=== PATIENT | female | born 1960 | race Caucasian/White ===

== ENCOUNTER → 2016-12-05 | Outpatient (CLI) | payer BC ==
[~2016-12-05] MED LIST: ADDE30CA PO; CELE20TA OR; EVIS1TAB PO; GABA300C3 PO; IBUP600T OR; LISI20TA PO; MELOPOW; SKEL800T5; TRAM50TA2 OR
[2016-12-05 16:04] LABS: BLOOD UREA NITROGEN 9 MG/DL (7-18); CARBON DIOXIDE LEVEL 31 MEQ/L (21-32); CREATININE FOR GFR 0.55 MG/DL (0.55-1.02); GLOMERULAR FILTRATION RATE > 60.0 (>51); GLUCOSE, FASTING 92 MG/DL (70-105)
[2016-12-05 16:05] LABS: ANION GAP 9 MEQ/L (8-16); CALCIUM LEVEL 9.6 MG/DL (8.5-10.1); CHLORIDE LEVEL 95 MEQ/L (98-107); POTASSIUM SERUM 3.5 MEQ/L (3.5-5.1); SODIUM LEVEL 135 MEQ/L (136-145)
--- NOTE | 2016-12-06 16:55 | ECGEPIP ---
Stationary ECG Study [facility] Test Date: 2016-12-05 Pat Name: DRISS ROMAN Department: Room: - Gender: F Terminal Operations Supervisor: ALICE : 1960 Requested By: aMtt Rocha Order Number: [id number] Reading MD: Ming Boogie Measurements Intervals Otis Rate: 73 P: 35 MA: 152 QRS: 56 QRSD: 98 T: 42 QT: 409 QTc: 452 Interpretive Statements SINUS RHYTHM MINIMAL VOLTAGE CRITERIA FOR LVH, CONSIDER NORMAL VARIANT No significant change compared with 08/24/2011. Electronically Signed On 12-06-2016 16:54:54 EDT by Ming Boogie
== END ==
LOC: M LAB 14:37
PROVIDERS: ATTEND Anesthesiology
DX: I10 Essential (primary) hypertension (principal)

== ENCOUNTER 2016-12-06 10:55 | Day surgery (SDC) | payer BC ==
[~2016-12-06] VITALS: Ht 157.5 cm; Wt 56.7 kg
[~2016-12-06 10:55] MED LIST changes: +BACITRACIN PWD 50,000 UNITS VIAL As Ordered ONE; +BUPIVACAINE/EPIN 0.25% 30 ML VIAL As Ordered ONE; +GABA-282 PO; -GABA300C3 PO; +THROMBIN SOLN 20,000 UNITS KIT As Ordered ONE
[2016-12-06] MEDS ORDERED: LR 1,000 ML IV SCH ×3 (11:15→17:30)
[2016-12-06] MEDS ORDERED: PERCOCET 5MG/325MG TAB PO ONE (11:15)
[2016-12-06] MEDS ORDERED: ceFAZolin SOD 1 GM in D5W MINI-BAG PLUS 50 ML IV ONE (11:15)
[2016-12-06] MEDS ORDERED: GABAPENTIN 300 MG CAP PO ONE (11:15)
[2016-12-06] MEDS ORDERED: MIDAZOLAM INJ 2 MG/2 ML VIAL (J2250) As Ordered ONE (12:24)
[2016-12-06] MEDS ORDERED: fentaNYL 100 MCG/2 ML INJECTION (J3010) As Ordered ONE (12:25)
[2016-12-06] MEDS ORDERED: PROPOFOL 200 MG/20 ML VIAL As Ordered ONE (12:26)
[2016-12-06] MEDS ORDERED: LIDOCAINE 2% INJ 100 MG/5 ML SDV (FOR ANES.) As Ordered ONE (12:26)
[2016-12-06] MEDS ORDERED: ROCURONIUM BROMIDE 50 MG/5 ML VIAL As Ordered ONE (12:28)
[2016-12-06] MEDS ORDERED: fentaNYL 250 MCG/5 ML INJECTION (J3010) As Ordered ONE (12:50)
[2016-12-06] MEDS ORDERED: METOCLOPRAMIDE INJ 10MG/2ML VIAL (J2765) As Ordered ONE (13:29)
[2016-12-06] MEDS ORDERED: dexameTHASONE 4 MG/ML 1ML VIAL (J1100) As Ordered ONE (13:32)
[2016-12-06] MEDS ORDERED: ePHEDrine SULFATE 25 MG/5 ML(5MG/ML) SYRINGE As Ordered ONE (13:48)
--- NOTE | 2016-12-06 14:24 | REP ---
Lumbar spine intraoperative cross-table lateral view: The tip of a metallic probe is seen posterior to the L4-L5 disc space. Signed by Vipul Mendez MD 12/06/2016 02:16 P
[2016-12-06] MEDS ORDERED: HYDROmorphone HCL 2 MG/ML 1ML VIAL (J1170) As Ordered ONE (14:58)
[2016-12-06] MEDS ORDERED: ONDANSETRON 4MG/2ML VIAL (J2405) As Ordered ONE (15:02)
[2016-12-06] MEDS ORDERED: GLYCOPYRROLATE INJ 0.2 MG/ML 2 ML VIAL As Ordered ONE (15:03)
[2016-12-06] MEDS ORDERED: NEOSTIGMINE 1MG/ML 5 ML SYRINGE (J2710) As Ordered ONE (15:04)
[2016-12-06] MEDS ORDERED: CelecoXIB (CeleBREX) 100 MG CAP PO SCH (15:25)
--- NOTE | 2016-12-06 16:12 | RO ---
DATE OF PROCEDURE: 12/06/2016 PREPROCEDURE DIAGNOSIS: Disc extrusion L5-S1 left producing left lower extremity radiculopathy. POSTPROCEDURE DIAGNOSIS: Disc extrusion L5-S1 left producing left lower extremity radiculopathy. PROCEDURE PERFORMED: Left L5-S1 laminotomy with microdiscectomy for decompression of the traversing nerve root and neural foramina. INTRAOPERATIVE FINDINGS: Includes relatively large disc extrusion L5-S1 with some inferior migration, elevating especially the S1 nerve root traversing. SURGEON: Rafa Aguilar MD BRAZER REPAIR AND SALVAGE: Hernandez Steiner PA-C ANESTHESIA: General. ESTIMATED BLOOD LOSS: Less than 40 mL. REPLACED: Crystalloid. COMPLICATIONS: None. INDICATIONS: Left lower extremity radiculopathy producing significant discomfort over a number of weeks. The patient feels that she has intractable pain and has elected for operative intervention. Consent reviewed in detail with the patient including cindy discussion of the procedure proposed, the pathology involved, alternatives including doing nothing, epidural injections of therapy and risks including not limited to pain, failure, infection, bleeding, blood loss, incomplete relief of symptoms, need for additional surgery and other issues. The patient agrees to proceed with surgery. DESCRIPTION OF PROCEDURE: Identified in the holding area, site, side verified and brought to the operating room. General endotracheal anesthesia was administered. She was positioned for exposure on the Dominic frame. I assisted in positioning. Axillary rolls were utilized. The knees were slightly flexed. The Dominic was slightly elevated. Next, once I and the web knitter were comfortable with the patient's positioning she was then sterilely prepped and draped in the usual fashion for exposure of the lumbar spine. The iliac crest landmarks were palpated, marked and I palpated the L5 spinous process. A 2 cm incision was made over the L5-S1 interspace. Dissection continued through subcuticular tissues to the posterior lumbar fascia. Posterior lumbar fascia was reflected off of the spinous process of L5 and dissection continued along the L5 lamina to the superior aspect of the L5 lamina at the inferior aspect of the 4-5 lamina into the superior aspect of the top of the sacrum. A bur was utilized to create a divot in the posterior lamina of L4 and a cross-table lateral was taken verifying the L4-5 level. The dissection continued at the L5 lamina exposing the top of the S1 lamina and the L5-S1 interspace. Next, because the patient's incision was relatively small, we utilized a 35 mm cervical shadow line retractor. At this stage, the operating microscope was sterilely draped and brought in. Mr. Steiner looked through the oculars on the right, I through the oculars on the left. High-speed bur was utilized to implement the laminotomy extending superiorly to the bare area of L5 and inferiorly to the bare area of S1. Mr. Steiner assisted with suction as well as retraction. Next, I elevated the ligamentum flavum with #4-0 Viviane curettes and removed using pituitaries as well as #2 Kerrison. Next, subarticular space was decompressed as well. Next, I identified the S1 traversing nerve root which appeared to be injected with significant small epidurals around it. This was swept medially over the extruded disc, which was appreciated to be inferiorly migrated. Next, the posterior longitudinal ligament as well as the annulus were opened. I removed the extruded portion using Vee pituitaries as well as the Salcedo-Stephen which was utilized to palpate and push the disc material through the rent in the posterior longitudinal ligament. I also explored the L5-S1 space. There is now free friable material there. We explored medially using the Salcedo-Stephen blunt end, pressing some additional disc material from underneath the posterior longitudinal ligament and I explored the neural foramina at L5-S1 on the left side with the Salcedo-Stephen and pushed additional extruded material medially and removed it through the rent in the posterior in the posterior longitudinal ligament. Next bipolar cautery was utilized for hemostasis as well as thrombin Gelfoam. All thrombin Gelfoam was removed and this marked the conclusion of the case. I did utilize some bone wax as well. Next, once irrigation was accomplished and I had anesthesia with Valsalva I did not appreciate any active bleeding or cerebrospinal fluid (CSF) leak. Next, all thrombin Gelfoam was removed. The wound was at the conclusion irrigated with concentrated bacitracin. Mr. Steiner and I closed the wound with interrupted #0 Vicryl stitch and subcuticular Vicryl utilized on dermis followed by Monocryl, Steri-Strips, sterile dressing. The patient was moved to the hospital bed, extubated, moved to the recovery room in good condition. For further details please refer to the medical record.
[2016-12-06] MEDS ORDERED: MORPHINE 2 MG/ML 1ML SYRINGE IV PRN ×2 (16:15→17:30)
[2016-12-06] MEDS: PERCOCET 5MG/325MG TAB PO PRN ×3 (16:15→20:42)
[2016-12-06] MEDS ORDERED: ONDANSETRON 4MG/2ML VIAL (J2405) IV PRN ×2 (16:15→17:30)
[2016-12-06] MEDS ORDERED: fentaNYL 100 MCG/2 ML INJECTION (J3010) IV PRN ×2 (16:15→17:30)
[2016-12-06] MEDS: D5W/LR 1,000 ML IV SCH (16:30)
[2016-12-06] MEDS ORDERED: TEMAZEPAM 15 MG CAP PO PRN (16:30)
[2016-12-06] MEDS ORDERED: PERCOCET 5MG/325MG TAB PO PRN ×2 (16:30→17:30)
[2016-12-06 17:00] VITALS: BP 116/64
[2016-12-06 17:30] VITALS: BP 120/69
[2016-12-06 18:30] VITALS: BP 115/59
[2016-12-06 19:30] VITALS: BP 126/65
[2016-12-06 20:30] VITALS: BP 121/67
[2016-12-06] MEDS: ceFAZolin SOD 1 GM in D5W MINI-BAG PLUS 50 ML IV SCH (20:41)
[2016-12-06] MEDS: ASCORBIC ACID 500 MG TAB PO SCH (20:41)
[2016-12-06] MEDS: GABAPENTIN 300 MG CAP PO SCH (20:41)
[2016-12-06 21:30] VITALS: BP 102/58
[2016-12-06] MEDS: HYDROmorphone HCL 1 MG/ML SYRINGE (J1170) IV PRN (22:49)
[2016-12-07] MEDS: D5W/LR 1,000 ML IV SCH (01:30)
[2016-12-07 02:00] VITALS: BP 101/51
[2016-12-07] MEDS: ceFAZolin SOD 1 GM in D5W MINI-BAG PLUS 50 ML IV SCH (02:59)
[2016-12-07] MEDS: PERCOCET 5MG/325MG TAB PO PRN (03:00)
[2016-12-07 06:00] VITALS: BP 140/85
[2016-12-07] MEDS: HYDROmorphone HCL 1 MG/ML SYRINGE (J1170) IV PRN (06:13)
[2016-12-07] MEDS: ASCORBIC ACID 500 MG TAB PO SCH (09:43)
[2016-12-07] MEDS: GABAPENTIN 300 MG CAP PO SCH (09:43)
== END 2016-12-07 11:25 | disposition home or self-care (01) ==
LOC: M SDC 10:55 → M MS5PR 17:00 → M SDC 12-07 11:25
PROVIDERS: ATTEND Orthopaedic Surgery
DX: M51.17 Intervertebral disc disorders with radiculopathy, lumbosacral region (principal); G57.92 Unspecified mononeuropathy of left lower limb; I10 Essential (primary) hypertension; Z85.3 Personal history of malignant neoplasm of breast; Z92.3 Personal history of irradiation; Z79.899 Other long term (current) drug therapy
CPT/HCPCS: 36415; 63030; 72100; 86850; 86900; 86901; 88304; 96365; 96366; 96375; 96376; J0690; J1100; J1170; J2250; J2405; J2710; J2765; J3010

== ENCOUNTER 2016-12-18 14:36 | Emergency (ER) | payer BC ==
[~2016-12-18] VITALS: Ht 157.5 cm; Wt 56.7 kg
[~2016-12-18 14:36] MED LIST changes: -BACITRACIN PWD 50,000 UNITS VIAL As Ordered ONE; -BUPIVACAINE/EPIN 0.25% 30 ML VIAL As Ordered ONE; -THROMBIN SOLN 20,000 UNITS KIT As Ordered ONE
[2016-12-18 14:37] VITALS: BP 115/85
[2016-12-18] MEDS ORDERED: CHLO25TA PO (14:52)
[2016-12-18] MEDS ORDERED: LIDOCAINE 1% MDV 20ML VIAL IM ONE (15:15)
[2016-12-18] MEDS ORDERED: AUGM875T27 PO (15:35)
[2016-12-18] MEDS ORDERED: ADACEL/BOOSTRIX VACCINE (DIPHTH/PERTUSS/ACELL/TETANUS)0.5ML SYR (90715) IM ONE (15:45)
[2016-12-18] MEDS ORDERED: AUGMENTIN 875 MG TAB PO ONE (15:45)
== END 2016-12-18 15:59 | disposition home or self-care (01) ==
LOC: M ED 15:57
DX: S61.218A Laceration without foreign body of other finger without damage to nail, initial encounter (principal); W26.9XXA Contact with unspecified sharp object(s), initial encounter; Y92.019 Unspecified place in single-family (private) house as the place of occurrence of the external cause; Y93.89 Activity, other specified; Y99.8 Other external cause status

== ENCOUNTER → 2017-02-20 | Outpatient (REF) | payer BC ==
[~2017-02-20] MED LIST changes: +AUGM875T27 PO; +CHLO25TA PO
[2017-02-20 12:15] LABS: MEAN CORPUSCULAR HGB CONC 33.8 g/dl (32.0-36.5); MEAN CORPUSCULAR VOLUME 94.8 fl (80.0-96.0); RED CELL DISTRIBUTION WIDTH 12.3 % (11.5-14.5); WHITE BLOOD COUNT 4.9 K/mm3 (4.0-10.0)
[2017-02-20 13:09] LABS: ALBUMIN 4.7 GM/DL (3.2-5.2); ALBUMIN/GLOBULIN RATIO 1.52 (1.00-1.93); ALKALINE PHOSPHATASE 52 U/L (45-117); ALT/SGPT 34 U/L (12-78); ANION GAP 7 MEQ/L (8-16); AST/SGOT 25 U/L (15-37); BILIRUBIN,TOTAL 0.6 MG/DL (0.2-1.0); BLOOD UREA NITROGEN 11 MG/DL (7-18); CALCIUM LEVEL 9.9 MG/DL (8.5-10.1); CARBON DIOXIDE LEVEL 30 MEQ/L (21-32); CHLORIDE LEVEL 102 MEQ/L (98-107); CREATININE FOR GFR 0.56 MG/DL (0.55-1.02); GLOMERULAR FILTRATION RATE > 60.0 (>51); GLUCOSE, FASTING 100 MG/DL (70-105); MAGNESIUM LEVEL 2.1 MG/DL (1.8-2.4); POTASSIUM SERUM 4.2 MEQ/L (3.5-5.1); SODIUM LEVEL 139 MEQ/L (136-145); TOTAL PROTEIN 7.8 GM/DL (6.4-8.2)
== END ==
LOC: M SFHCPLAZ 10:17
PROVIDERS: ATTEND Internal Medicine
DX: I10 Essential (primary) hypertension (principal); E78.00 Pure hypercholesterolemia, unspecified; Z85.3 Personal history of malignant neoplasm of breast

== ENCOUNTER 2018-12-20 08:06 | Day surgery (SDC) | payer BC ==
[~2018-12-20] VITALS: Ht 157.5 cm; Wt 54.4 kg
[~2018-12-20 08:06] MED LIST changes: -ADDE30CA PO; +ADDE30CA3 PO; -AUGM875T27 PO; +AUGM875T28 PO; +CITA20TA6 PO; -GABA-282 PO; +GABA-843 PO; +IBUP-1022 PO
[2018-12-20] MEDS ORDERED: NS 1,000 ML IV ONE (08:30)
[2018-12-20] MEDS ORDERED: PROPOFOL 200 MG/20 ML VIAL As Ordered ONE (09:06)
--- NOTE | 2018-12-20 09:19 | ROOR ---
Patient Name: Holly John Procedure Date: 12/20/2018 9:00 AM Date of : 1960 Age: 58 Room: [facility] Gender: Female Note Status: Finalized Procedure: Colonoscopy Indications: Surveillance: Personal history of adenomatous polyps on last colonoscopy 3 years ago Providers: Ming WILLIS MD Referring MD: Eduardo Ramos MD Requesting Provider: Medicines: Monitored Anesthesia Care Complications: No immediate complications. Procedure: Pre-Anesthesia Assessment: - The heart rate, respiratory rate, oxygen saturations, blood pressure, adequacy of pulmonary ventilation, and response to care were monitored throughout the procedure. The Colonoscope was introduced through the anus and advanced to the terminal ileum, with identification of the appendiceal orifice and IC valve. The colonoscopy was performed without difficulty. The patient tolerated the procedure well. The quality of the bowel preparation was good. Findings: The perianal and digital rectal examinations were normal. Mild sigmoid diverticulosis and small internal hemorrhoids. The entire examined colon appeared normal on direct and retroflexion views. Impression: - Mild sigmoid diverticulosis and small internal hemorrhoids. - The entire colon is otherwise normal on direct and retroflexion views. - No specimens collected. Recommendation: - Repeat colonoscopy in 5 years for surveillance based on personal history of previous adenomatous polyps. Ming Willis MD Ming WILLIS MD 12/20/2018 9:19:05 AM Electronically signed by Ming WILLIS MD Number of Addenda: 0 Note Initiated On: 12/20/2018 9:00 AM Estimated Blood Loss: Estimated blood loss: none.
[2018-12-20 09:20] VITALS: BP 145/96
== END 2018-12-20 10:20 | disposition home or self-care (01) ==
LOC: M OPP 08:06
PROVIDERS: ATTEND Internal Medicine Gastroenterology
DX: K57.30 Diverticulosis of large intestine without perforation or abscess without bleeding (principal); K64.8 Other hemorrhoids; Z86.010 Personal history of colon polyps

== ENCOUNTER → 2019-11-15 | Outpatient (CLI) | payer BC ==
[~2019-11-15] MED LIST changes: -LISI20TA PO; +LISI20TA19 PO
--- NOTE | 2019-11-15 11:28 | REP ---
CT chest without contrast: Low-dose screening exam. History: Nicotine dependence. No comparison chest CT study. CT findings: Digital preliminary grain trader radiograph is unremarkable. There is no significant pulmonary nodular or other opacity either lung. This study is otherwise unremarkable. Impression: Lung RADS category 1 findings. Repeat screening study recommended in 1 year. Electronically Signed by Feliciano Wolfe MD 11/15/2019 03:50 P
== END ==
LOC: M RAD 09:23
PROVIDERS: ATTEND Internal Medicine
DX: Z87.891 Personal history of nicotine dependence (principal)

== ENCOUNTER → 2019-11-21 | Outpatient (REF) | payer BC ==
[~2019-11-21] MED LIST changes: +ALEV220T22 PO; +CHAN1PAK13 PO; +CLONI1TA PO; +NASA1SPR
[2019-11-21 12:25] LABS: BLOOD UREA NITROGEN 15 MG/DL (7-18); CALCIUM LEVEL 10.2 MG/DL (8.5-10.1); CARBON DIOXIDE LEVEL 33 MEQ/L (21-32); CHLORIDE LEVEL 93 MEQ/L (98-107); CREATININE FOR GFR 0.72 MG/DL (0.55-1.30); GLOMERULAR FILTRATION RATE > 60.0 (>51); GLUCOSE, FASTING 90 MG/DL (70-100); POTASSIUM SERUM 3.6 MEQ/L (3.5-5.1); SODIUM LEVEL 133 MEQ/L (136-145)
== END ==
LOC: M LABDRAW1 09:53
PROVIDERS: ATTEND Orthopaedic Surgery
DX: Z79.899 Other long term (current) drug therapy (principal)

== ENCOUNTER → 2019-11-25 | Outpatient (REF) | payer BC ==
[2019-11-25 13:50] LABS: HEMATOCRIT 42.6 % (36.0-47.0); HEMOGLOBIN 14.4 g/dl (12.0-15.5); MEAN CORPUSCULAR HEMOGLOBIN 31.3 pg (27.0-33.0); MEAN CORPUSCULAR HGB CONC 33.8 g/dl (32.0-36.5); MEAN CORPUSCULAR VOLUME 92.6 fl (80.0-96.0); PLATELET COUNT, AUTOMATED 278 10^3/uL (150-450); WHITE BLOOD COUNT 5.4 10^3/uL (4.0-10.0)
[2019-11-25 14:04] LABS: ALBUMIN 4.5 GM/DL (3.2-5.2); ALT/SGPT 27 U/L (12-78); BILIRUBIN,TOTAL 0.3 MG/DL (0.2-1.0); BLOOD UREA NITROGEN 13 MG/DL (7-18); CALCIUM LEVEL 9.8 MG/DL (8.5-10.1); CARBON DIOXIDE LEVEL 33 MEQ/L (21-32); CHLORIDE LEVEL 97 MEQ/L (98-107); CHOLESTEROL LEVEL 261 MG/DL (<200); CHOLESTEROL RISK RATIO 2.932 (<5); CREATININE FOR GFR 0.58 MG/DL (0.55-1.30); GLOMERULAR FILTRATION RATE > 60.0 (>51); GLUCOSE, FASTING 111 MG/DL (70-100); HDL CHOLESTEROL 89 MG/DL (>40); LDL CHOLESTEROL 152 MG/DL (<100); NON-HDL-C 172 MG/DL; POTASSIUM SERUM 3.9 MEQ/L (3.5-5.1); SODIUM LEVEL 136 MEQ/L (136-145); TOTAL PROTEIN 7.9 GM/DL (6.4-8.2); TRIGLYCERIDES LEVEL 102 MG/DL (<150)
== END ==
LOC: M SFHCPLAZ 11:36
PROVIDERS: ATTEND Internal Medicine
DX: I10 Essential (primary) hypertension (principal); E78.00 Pure hypercholesterolemia, unspecified; Z85.3 Personal history of malignant neoplasm of breast

== ENCOUNTER → 2020-01-06 | Outpatient (REF) | payer BC ==
[2020-01-06 15:35] LABS: BASO # 0.1 10^3/uL (0.0-0.2); BASO % 0.8 % (0.0-1.0); EOS % 0.3 % (0.0-3.0); HEMATOCRIT 42.6 % (36.0-47.0); HEMOGLOBIN 14.1 g/dl (12.0-15.5); LYMPH # 1.7 10^3/uL (1.5-5.0); LYMPH % 22.4 % (24.0-44.0); MEAN CORPUSCULAR HEMOGLOBIN 31.5 pg (27.0-33.0); MEAN CORPUSCULAR HGB CONC 33.1 g/dl (32.0-36.5); MEAN CORPUSCULAR VOLUME 95.1 fl (80.0-96.0); MONO # 0.6 10^3/uL (0.0-0.8); MONO % 8.3 % (0.0-5.0); NEUTROPHILS % 67.8 % (36.0-66.0); PLATELET COUNT, AUTOMATED 299 10^3/uL (150-450); RED BLOOD COUNT 4.48 10^6/uL (4.00-5.40); WHITE BLOOD COUNT 7.4 10^3/uL (4.0-10.0)
[2020-01-06 15:41] LABS: ALBUMIN 4.5 GM/DL (3.2-5.2); ALT/SGPT 30 U/L (12-78); BILIRUBIN,TOTAL 0.5 MG/DL (0.2-1.0); BLOOD UREA NITROGEN 10 MG/DL (7-18); CALCIUM LEVEL 9.9 MG/DL (8.5-10.1); CARBON DIOXIDE LEVEL 35 MEQ/L (21-32); CHLORIDE LEVEL 96 MEQ/L (98-107); CHOLESTEROL LEVEL 288 MG/DL (<200); CHOLESTEROL RISK RATIO 2.642 (<5); GLOMERULAR FILTRATION RATE > 60.0 (>51); GLUCOSE, FASTING 107 MG/DL (70-100); HDL CHOLESTEROL 109 MG/DL (>40); LDL CHOLESTEROL 154 MG/DL (<100); MAGNESIUM LEVEL 2.1 MG/DL (1.8-2.4); NON-HDL-C 179 MG/DL; POTASSIUM SERUM 4.1 MEQ/L (3.5-5.1); SODIUM LEVEL 137 MEQ/L (136-145); TOTAL PROTEIN 7.8 GM/DL (6.4-8.2); TRIGLYCERIDES LEVEL 123 MG/DL (<150)
[2020-01-06 15:45] LABS: INR 0.92; PROTHROMBIN TIME 12.1 SECONDS (11.8-14.0)
[2020-01-06 15:46] LABS: PARTIAL THROMBOPLASTIN TIME 28.1 SECONDS (25.0-38.4)
[2020-01-06 15:51] LABS: PTH INTACT 60.4 PG/ML (18.5-88.0)
[2020-01-06 15:57] LABS: HEMOGLOBIN A1c 5.4 %
== END ==
LOC: M SFHCPLAZ 13:16
PROVIDERS: ATTEND Family Medicine
DX: Z01.818 Encounter for other preprocedural examination (principal); I10 Essential (primary) hypertension

== ENCOUNTER → 2020-01-07 | Outpatient (CLI) | payer BC | LOC: M LABSMTC 10:19 | PROVIDERS: ATTEND Orthopaedic Surgery | DX: Z01.818 Encounter for other preprocedural examination (principal); Z11.59 Encounter for screening for other viral diseases ==

== ENCOUNTER 2020-01-10 07:05 | Day surgery (SDC) | payer BC ==
[~2020-01-10] VITALS: Ht 157.5 cm; Wt 55.8 kg
[~2020-01-10 07:05] MED LIST changes: +LIDOCAINE 1% MDV 20ML VIAL SQ PRN; +LR 1,000 ML IV ONE
[2020-01-10] MEDS ORDERED: ROPIvacaine 0.5% 30ML INJECTION (J2795 PER 1MG) ONE (07:06)
[2020-01-10] MEDS ORDERED: LIDOCAINE 1% MDV 20ML VIAL ONE (07:06)
[2020-01-10] MEDS ORDERED: EPINEPHrine INJ 1 MG/ML 1ML AMP ONE (07:06)
[2020-01-10] MEDS ORDERED: dexameTHASONE 10MG/1ML VIAL PRES.FREE (J1100 PER 1MG) ONE (07:06)
[2020-01-10] MEDS ORDERED: ceFAZolin 2 GM/D5W 50 ML IV BAG (J0690 PER 500MG) As Ordered ONE (07:40)
[2020-01-10] MEDS ORDERED: ceFAZolin SOD 2 GM in IV 1 EA IV ONE (08:00)
[2020-01-10] MEDS ORDERED: fentaNYL 100 MCG/2 ML INJECTION (J3010) As Ordered ONE ×2 (08:18→08:38)
[2020-01-10] MEDS ORDERED: MIDAZOLAM INJ 2MG/2ML VIAL (J2250 PER 1MG) As Ordered ONE ×2 (08:18→08:38)
[2020-01-10] MEDS ORDERED: LIDOCAINE 2% 100MG/5ML SDV (FOR ANES.) As Ordered ONE (08:19)
[2020-01-10] MEDS ORDERED: propofoL 200 MG/20 ML VIAL As Ordered ONE (08:19)
[2020-01-10] MEDS ORDERED: SUGAMMADEX SODIUM 500 MG/5 ML VIAL (BRIDION) As Ordered ONE (08:19)
[2020-01-10] MEDS ORDERED: dexameTHASONE 4 MG/ML 1ML VIAL (J1100 PER 1MG) As Ordered ONE (08:19)
[2020-01-10] MEDS ORDERED: ONDANSETRON 4MG/2ML VIAL As Ordered ONE (08:19)
[2020-01-10] MEDS ORDERED: ROCURONIUM BROMIDE 50 MG/5 ML VIAL As Ordered ONE ×2 (08:19→11:54)
[2020-01-10] MEDS: MIDAZOLAM INJ 2MG/2ML VIAL (J2250 PER 1MG) IV SCH ×2 (08:50→08:53)
[2020-01-10] MEDS ORDERED: fentaNYL 100 MCG/2 ML INJECTION (J3010) IV ONE (09:30)
[2020-01-10] MEDS ORDERED: EPINEPHrine 1MG/ML INJ 30ML MD-VIAL As Ordered ONE (10:21)
[2020-01-10] MEDS ORDERED: ACETAMINOPHEN 1000MG 100ML IV BTL (OFIRMEV) (J0131 PER 10MG) As Ordered ONE (11:12)
[2020-01-10] MEDS ORDERED: NORCO, ANEXSIA 5/325MG TABLET (HYDROcodone/ACETAMINOPHEN) PO PRN ×2 (12:45)
[2020-01-10] MEDS ORDERED: PERCOCET 5MG/325MG TAB PO PRN (12:45)
[2020-01-10] MEDS ORDERED: LR 1,000 ML IV SCH ×2 (12:45)
[2020-01-10] MEDS ORDERED: MORPHINE 4 MG/ML 1ML VIAL/SYRINGE (J2270) IV PRN (12:45)
[2020-01-10] MEDS ORDERED: METOCLOPRAMIDE INJ 10MG/2ML VIAL (J2765 PER 1) IV PRN (12:45)
[2020-01-10] MEDS ORDERED: fentaNYL 100 MCG/2 ML INJECTION (J3010) IV PRN (12:45)
[2020-01-10] MEDS ORDERED: ONDANSETRON 4MG/2ML VIAL IV PRN (12:45)
[2020-01-10 14:15] VITALS: BP 162/75
--- NOTE | 2020-01-13 12:27 | RO ---
DATE OF PROCEDURE: 01/10/2020 PREPROCEDURE DIAGNOSES: 1. Right shoulder superior labral anterior posterior tear. 2. Right shoulder acromioclavicular (AC) joint arthritis. 3. Subacromial impingement. POSTPROCEDURE DIAGNOSES: 1. Acromioclavicular joint arthritis. 2. Glenohumeral arthritis. 3. Superior labral anterior posterior tear. 4. Glenohumeral synovitis. PROCEDURE: 1. Right shoulder arthroscopic synovectomy. 2. Right shoulder arthroscopic chondroplasty. 3. Right shoulder arthroscopic biceps tenotomy and superior labral anterior posterior (SLAP) tear debridement. 4. Right shoulder arthroscopic subacromial bursectomy. 5. Right shoulder arthroscopic distal clavicle excision. SURGEON: Dr. David Miner MOVEMAN: Ms. Florencia Alva ANESTHESIA: Right interscalene nerve block with general endotracheal tube anesthetic. COMPLICATIONS: None. FINDINGS: She actually had fairly extensive glenoid arthritis. In addition, there was significant superior labral and internal impingement associated synovitis associated with an unstable superior labral tear and fragmentation of the bone underlying the superior labrum. In addition, the AC joint was markedly arthritic. DESCRIPTION OF PROCEDURE: Antibiotics were given intravenously preoperatively and then a successful right interscalene nerve block was established. She was placed in semi beach chair position and a spiral shoulder serrano was utilized for the positioning. Her right shoulder area was carefully prepped and draped in the usual sterile fashion. After appropriate time-out, routine diagnostic arthroscopy performed to a posterior portal with the glenohumeral findings as noted above. The rotator cuff was not torn. There was extensive degenerative changes involving the glenoid. In addition, there was quite a bit of inflammation at the superior posterior aspect of the shoulder joint consistent with some internal impingement, and associated with this the labrum superiorly was quite lax and underlying this was fragments of articular cartilage indicative of having a loose SLAP type attachment with underlying arthritic change underneath. Thus, it was elected to debride this area with a shaver, which I did, and then performed a biceps tenotomy using an ablator wand. At this point, multiple photographs were taken. There was no other intra-articular pathology that I could treat. Thus, I placed the scope in the subacromial space. I had excellent visualization of the rotator cuff from above. There was no rotator cuff tear noted, but a bursectomy was performed. I identified the AC joint, and the AC joint was notably significantly discombobulated with significant fibrotic debris and arthritic debris within the joint, which was cleared away with the shaver and the ablator wand. An anterior working portal was established directly into the AC joint, and then eventually a bur was introduced to perform a formal distal clavicle excision photographing before and afterward. It was cleaned up with a shaver. Bleeding points were controlled with the ablator wand. At this point, finding no other arthroscopic treatable pathology, we copiously irrigated out the joint and removed the arthroscopy instruments. We then made a small longitudinal incision in the axillary fold anteriorly. Bovie cautery was used to coagulate the crossing vessels. We dissected underneath the pectoralis muscle and identified the bicipital groove in the biceps tendon and pulled that into the wound. Then, I placed the Mitek suture anchor within the bicipital groove using the drill and then inserted the anchor, and then I passed one limb of the suture on the anchor at the myotendinous junction of the biceps tendon, then cut off the excess. Then, I dunked the suture down to the Mitek anchor and over sewed it with several half stitches securing the biceps to the bone. We copiously irrigated and closed the skin with running #3-0 nylon suture. The rest of the arthroscopy ports were closed with #3-0 nylon sutures covered by Adaptic, dry sterile bulky dressing and a sling. Then, she was awakened from general endotracheal tube anesthesia after having tolerating the procedure well, transferred to the recovery room in stable condition. There were no intraoperative complications. Ms. Florencia Alva, my business services assistant, was critical to the success of this difficult surgery by helping to position the patient, helped to manipulate the arm and handle the instruments, closed the wound, amongst many other tasks to allow me to perform the operation smoothly, efficiently and safely.
== END 2020-01-10 14:30 | disposition home or self-care (01) ==
LOC: M SDC 07:05
PROVIDERS: ATTEND Orthopaedic Surgery
DX: S43.431A Superior glenoid labrum lesion of right shoulder, initial encounter (principal); M19.011 Primary osteoarthritis, right shoulder; M75.41 Impingement syndrome of right shoulder; M65.811 Other synovitis and tenosynovitis, right shoulder; X58.XXXA Exposure to other specified factors, initial encounter; Y92.89 Other specified places as the place of occurrence of the external cause; I10 Essential (primary) hypertension; F41.9 Anxiety disorder, unspecified; Z85.3 Personal history of malignant neoplasm of breast; Z92.3 Personal history of irradiation; Z87.891 Personal history of nicotine dependence; Z79.899 Other long term (current) drug therapy
CPT/HCPCS: 29807; 29821; 29824; 29826; 29828; 64415; C1713; J0131; J0171; J0690; J1100; J2250; J2405; J2795; J3010

== ENCOUNTER → 2020-08-02 | Outpatient (CLI) | payer BC ==
[~2020-08-02] MED LIST changes: -LIDOCAINE 1% MDV 20ML VIAL SQ PRN; -LISI20TA19 PO; +LISI20TA35 PO; -LR 1,000 ML IV ONE
[2020-08-02 10:05] LABS: ALBUMIN 3.6 GM/DL (3.2-5.2); ALT/SGPT 17 U/L (12-78); BILIRUBIN,TOTAL 0.5 MG/DL (0.2-1.0); BLOOD UREA NITROGEN 10 MG/DL (7-18); CALCIUM LEVEL 9.3 MG/DL (8.5-10.1); CARBON DIOXIDE LEVEL 31 MEQ/L (21-32); CHLORIDE LEVEL 97 MEQ/L (98-107); CHOLESTEROL LEVEL 201 MG/DL (<200); CREATININE FOR GFR 0.55 MG/DL (0.55-1.30); GLOMERULAR FILTRATION RATE > 60.0 (>51); GLUCOSE, FASTING 90 MG/DL (70-100); HDL CHOLESTEROL 67 MG/DL (>40); LDL CHOLESTEROL 124 MG/DL (<100); MAGNESIUM LEVEL 1.7 MG/DL (1.8-2.4); NON-HDL-C 134 MG/DL; POTASSIUM SERUM 3.9 MEQ/L (3.5-5.1); SODIUM LEVEL 132 MEQ/L (136-145); TOTAL PROTEIN 7.2 GM/DL (6.4-8.2); TRIGLYCERIDES LEVEL 51 MG/DL (<150)
== END ==
LOC: M LAB 08:31
PROVIDERS: ATTEND Internal Medicine
DX: Z00.00 Encounter for general adult medical examination without abnormal findings (principal); E78.00 Pure hypercholesterolemia, unspecified; I10 Essential (primary) hypertension

== ENCOUNTER → 2020-09-07 | Outpatient (CLI) | payer BC ==
[2020-09-07 13:50] LABS: HEMATOCRIT 39.1 % (36.0-47.0); HEMOGLOBIN 12.8 g/dl (12.0-15.5); MEAN CORPUSCULAR HEMOGLOBIN 29.2 pg (27.0-33.0); MEAN CORPUSCULAR HGB CONC 32.7 g/dl (32.0-36.5); MEAN CORPUSCULAR VOLUME 89.1 fl (80.0-96.0); PLATELET COUNT, AUTOMATED 360 10^3/uL (150-450); RED BLOOD COUNT 4.39 10^6/uL (4.00-5.40); WHITE BLOOD COUNT 7.1 10^3/uL (4.0-10.0)
[2020-09-07 15:42] LABS: ALBUMIN 3.9 GM/DL (3.2-5.2); ALT/SGPT 18 U/L (12-78); BILIRUBIN,DIRECT 0.1 MG/DL (0.0-0.2); BILIRUBIN,TOTAL 0.6 MG/DL (0.2-1.0); BLOOD UREA NITROGEN 9 MG/DL (7-18); CALCIUM LEVEL 9.5 MG/DL (8.5-10.1); CARBON DIOXIDE LEVEL 31 MEQ/L (21-32); CHLORIDE LEVEL 95 MEQ/L (98-107); CREATININE FOR GFR 0.61 MG/DL (0.55-1.30); GLOMERULAR FILTRATION RATE > 60.0 (>51); GLUCOSE, FASTING 117 MG/DL (70-100); PHOSPHORUS LEVEL 3.3 MG/DL (2.5-4.9); POTASSIUM SERUM 4.2 MEQ/L (3.5-5.1); SODIUM LEVEL 131 MEQ/L (136-145); TOTAL PROTEIN 7.3 GM/DL (6.4-8.2)
== END ==
LOC: M PLALAB 11:27
PROVIDERS: ATTEND Podiatrist Foot & Ankle Surgery
DX: B35.1 Tinea unguium (principal); Z79.899 Other long term (current) drug therapy

== ENCOUNTER → 2020-10-08 | Outpatient (CLI) | payer BC ==
[~2020-10-08] MED LIST changes: +GABA-282 PO; -GABA-843 PO
== END ==
LOC: M LABSMTC 12:53
PROVIDERS: ATTEND Family Medicine
DX: Z20.822 Contact with and (suspected) exposure to COVID-19 (principal)
CPT/HCPCS: C9803; U0003

== ENCOUNTER → 2021-02-16 | Outpatient (REF) | payer BC ==
[2021-02-16 17:01] LABS: HEMATOCRIT 40.2 % (36.0-47.0); HEMOGLOBIN 13.1 g/dl (12.0-15.5); MEAN CORPUSCULAR HEMOGLOBIN 30.4 pg (27.0-33.0); MEAN CORPUSCULAR HGB CONC 32.6 g/dl (32.0-36.5); MEAN CORPUSCULAR VOLUME 93.3 fl (80.0-96.0); PLATELET COUNT, AUTOMATED 298 10^3/uL (150-450); RED BLOOD COUNT 4.31 10^6/uL (4.00-5.40); WHITE BLOOD COUNT 5.1 10^3/uL (4.0-10.0)
[2021-02-16 17:27] LABS: ALT/SGPT 22 U/L (12-78); BILIRUBIN,TOTAL 0.4 MG/DL (0.2-1.0); BLOOD UREA NITROGEN 12 MG/DL (7-18); CALCIUM LEVEL 9.8 MG/DL (8.8-10.2); CARBON DIOXIDE LEVEL 32 MEQ/L (21-32); CHLORIDE LEVEL 100 MEQ/L (98-107); CHOLESTEROL LEVEL 234 MG/DL (<200); CREATININE FOR GFR 0.55 MG/DL (0.55-1.30); GLOMERULAR FILTRATION RATE > 60.0 (>45); GLUCOSE, FASTING 94 MG/DL (70-100); POTASSIUM SERUM 3.7 MEQ/L (3.5-5.1); SODIUM LEVEL 137 MEQ/L (136-145); TRIGLYCERIDES LEVEL 99 MG/DL (<150)
[2021-02-16 17:28] LABS: ALBUMIN 4.1 GM/DL (3.2-5.2); CHOLESTEROL RISK RATIO 2.962 (<5); HDL CHOLESTEROL 79 MG/DL (>40); LDL CHOLESTEROL 135 MG/DL (<100); NON-HDL-C 155 MG/DL; TOTAL PROTEIN 7.1 GM/DL (6.4-8.2)
[2021-02-16 17:53] LABS: HEPATITIS C VIRUS ABY INDEX < 0.0 INDEX (<0.8)
[2021-02-16 19:32] LABS: HEMOGLOBIN A1c 5.4 %
== END ==
LOC: M SFHCPLAZ 14:44
PROVIDERS: ATTEND Internal Medicine
DX: Z85.3 Personal history of malignant neoplasm of breast (principal); I10 Essential (primary) hypertension; E78.00 Pure hypercholesterolemia, unspecified; Z11.59 Encounter for screening for other viral diseases

== ENCOUNTER → 2021-06-29 | Outpatient (CLI) | payer BC ==
[~2021-06-29] MED LIST changes: +ISOVUE-300 61% 50ML VIAL As Ordered ONE; +LIDOCAINE 1% MDV 20ML VIAL As Ordered ONE; +TRIAMCINOLONE ACETONIDE SUSP 40 MG/ML VIAL (J3301) As Ordered ONE
--- NOTE | 2021-06-29 17:33 | REP ---
INDICATION: UNILATERAL PRIMARY OSTEOARTHRITIS, LEFT HIP. COMPARISON: None TECHNIQUE: The procedure was performed by TANIKA Bellamy, under the direct supervision of Dr. Lomax. The benefits and risks of the procedure were explained to the patient, and an informed consent was obtained. Directly prior to the start of the procedure, a formal time-out was completed in the procedure room. The left hip joint space was localized using fluoroscopic guidance. The skin was prepped and draped in a sterile fashion. Approximately 5 mL of 1% Lidocaine 10 mg/ml was used as a local anesthetic. Using fluoroscopic guidance, a #22 gauge spinal needle was inserted and advanced into the left hip joint space. Approximately 2 mL of Isovue 300 was injected to verify placement. Seven ML of a solution containing 5 mL 1% lidocaine 10 mg/ml and 2 mL Kenalog 40 milligram/milliliter was injected into the joint space. The needle was removed and hemostasis was achieved. FINDINGS: The patient tolerated the procedure well and there were no immediate complications. IMPRESSION: 1. Technically successful left hip arthrogram. 0.2 minutes of fluoroscopy time was utilized for this procedure. Some fluoroscopic images are performed with last image hold technology. These images require no additional radiation. <Electronically signed by Marie Jensen > 06/29/21 [id number] <Electronically signed by Vipul Lomax > 06/29/21 [id number]
== END ==
LOC: M RADPRO 10:29
PROVIDERS: ATTEND Orthopaedic Surgery
DX: M16.12 Unilateral primary osteoarthritis, left hip (principal)
CPT/HCPCS: 20610; 77002; J3301; Q9967

== ENCOUNTER → 2021-10-20 | Outpatient (CLI) | payer BC ==
[~2021-10-20] MED LIST changes: -ISOVUE-300 61% 50ML VIAL As Ordered ONE; -LIDOCAINE 1% MDV 20ML VIAL As Ordered ONE; -TRIAMCINOLONE ACETONIDE SUSP 40 MG/ML VIAL (J3301) As Ordered ONE
== END ==
LOC: M RAD 08:13
PROVIDERS: ATTEND Internal Medicine
DX: Z87.891 Personal history of nicotine dependence (principal)

== ENCOUNTER → 2022-02-22 | Outpatient (CLI) | payer BC ==
[2022-02-22 14:04] LABS: BASO # 0.1 10^3/uL (0.0-0.2); BASO % 1.6 % (0.0-1.0); EOS # 0.2 10^3/uL (0.0-0.5); HEMATOCRIT 41.8 % (36.0-47.0); HEMOGLOBIN 13.3 g/dl (12.0-15.5); LYMPH # 2.4 10^3/uL (1.5-5.0); MEAN CORPUSCULAR HEMOGLOBIN 30.5 pg (27.0-33.0); MEAN CORPUSCULAR HGB CONC 31.8 g/dl (32.0-36.5); MEAN CORPUSCULAR VOLUME 95.9 fl (80.0-96.0); MONO # 0.6 10^3/uL (0.0-0.8); MONO % 13.1 % (2.0-8.0); NEUTROPHILS # 1.1 10^3/uL (1.5-8.5); NEUTROPHILS % 25.8 % (36.0-66.0); PLATELET COUNT, AUTOMATED 260 10^3/uL (150-450); RED BLOOD COUNT 4.36 10^6/uL (4.00-5.40); WHITE BLOOD COUNT 4.3 10^3/uL (4.0-10.0)
[2022-02-22 14:12] LABS: ALBUMIN 4.6 GM/DL (3.2-5.2); ALT/SGPT 25 U/L (12-78); BILIRUBIN,TOTAL 0.5 MG/DL (0.2-1.0); BLOOD UREA NITROGEN 16 MG/DL (7-18); CALCIUM LEVEL 10.4 MG/DL (8.8-10.2); CARBON DIOXIDE LEVEL 33 MEQ/L (21-32); CHLORIDE LEVEL 99 MEQ/L (98-107); CHOLESTEROL LEVEL 286 MG/DL (<200); CHOLESTEROL RISK RATIO 3.287 (<5); CREATININE FOR GFR 0.61 MG/DL (0.55-1.30); GLOMERULAR FILTRATION RATE > 60.0 (>45); GLUCOSE, FASTING 96 MG/DL (70-100); HDL CHOLESTEROL 87 MG/DL (>40); LDL CHOLESTEROL 183 MG/DL (<100); NON-HDL-C 199 MG/DL; POTASSIUM SERUM 4.7 MEQ/L (3.5-5.1); SODIUM LEVEL 138 MEQ/L (136-145); TOTAL PROTEIN 7.3 GM/DL (6.4-8.2); TRIGLYCERIDES LEVEL 79 MG/DL (<150)
[2022-02-22 14:13] LABS: MAGNESIUM LEVEL 2.1 MG/DL (1.8-2.4)
== END ==
LOC: M PLALAB 09:30
PROVIDERS: ATTEND Internal Medicine
DX: E78.00 Pure hypercholesterolemia, unspecified (principal); I10 Essential (primary) hypertension; Z85.3 Personal history of malignant neoplasm of breast

== ENCOUNTER → 2022-07-15 | Outpatient (CLI) | payer BC | LOC: M PLAIMG 13:49 | PROVIDERS: ATTEND Orthopaedic Surgery | DX: M16.12 Unilateral primary osteoarthritis, left hip (principal) ==

== ENCOUNTER → 2023-09-05 | Outpatient (CLI) | payer BC | LOC: M RAD 16:15 | PROVIDERS: ATTEND Family Medicine | DX: Z87.891 Personal history of nicotine dependence (principal) ==

== ENCOUNTER → 2024-04-10 | Outpatient (CLI) | payer BC | LOC: M PLARAD 11:21 | PROVIDERS: ATTEND Orthopaedic Surgery | DX: M19.90 Unspecified osteoarthritis, unspecified site (principal) ==

== ENCOUNTER → 2024-05-01 | Outpatient (CLI) | payer BC ==
[2024-05-01 15:18] LABS: BASO # 0.1 10^3/uL (0.0-0.2); EOS # 0.1 10^3/uL (0.0-0.5); HEMATOCRIT 41.6 % (36.0-47.0); HEMOGLOBIN 13.7 g/dl (12.0-15.5); LYMPH # 2.3 10^3/uL (1.5-5.0); LYMPH % 46.6 % (24.0-44.0); MEAN CORPUSCULAR HEMOGLOBIN 30.4 pg (27.0-33.0); MEAN CORPUSCULAR HGB CONC 32.9 g/dl (32.0-36.5); MEAN CORPUSCULAR VOLUME 92.2 fl (80.0-96.0); MONO # 0.5 10^3/uL (0.0-0.8); MONO % 10.6 % (2.0-8.0); NEUTROPHILS % 39.8 % (36.0-66.0); PLATELET COUNT, AUTOMATED 258 10^3/uL (150-450); RED BLOOD COUNT 4.51 10^6/uL (4.00-5.40); WHITE BLOOD COUNT 4.9 10^3/uL (4.0-10.0)
[2024-05-01 15:49] LABS: ALBUMIN 4.6 G/DL (3.2-5.2); ALKALINE PHOSPHATASE 50 U/L (46-116); ALT/SGPT 24 U/L (7.0-40); AST/SGOT 27 U/L (<34); BILIRUBIN,TOTAL 0.5 MG/DL (0.3-1.2); BLOOD UREA NITROGEN 16 MG/DL (9-23); CALCIUM LEVEL 10.1 MG/DL (8.3-10.6); CARBON DIOXIDE LEVEL 31 MMOL/L (20-31); CHLORIDE LEVEL 99 MMOL/L (98-107); GLOMERULAR FILTRATION RATE > 60.0 (>45); GLUCOSE, FASTING 94 MG/DL (74-106); IRON (FE) 82 UG/DL (50-170); PERCENT SATURATION 24.8 % (13.2-45.0); POTASSIUM SERUM 3.8 MMOL/L (3.5-5.1); SODIUM LEVEL 134 MMOL/L (136-145); TOTAL IRON BINDING CAPACITY 331 UG/DL (250-425); TOTAL PROTEIN 7.9 G/DL (5.7-8.2)
[2024-05-01 15:51] LABS: FERRITIN 52.7 NG/ML (7.3-270.7)
[2024-05-01 15:52] LABS: VITAMIN B12 LEVEL 526 PG/ML (211-911)
[2024-05-01 16:19] LABS: HEMOGLOBIN A1c 5.1 % (4.0-6.0)
== END ==
LOC: M RAD 13:46
PROVIDERS: ATTEND Orthopaedic Surgery
DX: Z01.812 Encounter for preprocedural laboratory examination (principal); R06.02 Shortness of breath; D64.9 Anemia, unspecified; I10 Essential (primary) hypertension; Z13.1 Encounter for screening for diabetes mellitus; I44.0 Atrioventricular block, first degree

== ENCOUNTER → 2024-05-09 | Outpatient (CLI) | payer BC ==
[2024-05-09 18:04] LABS: IMMUNOGLOBULIN A 157.6 MG/DL (40-350)
[2024-05-09 18:06] LABS: THYROID STIMULATING HORMONE 1.943 uIU/ML (0.55-4.78)
[2024-05-09 18:07] LABS: FREE T4 1.37 NG/DL (0.89-1.76)
== END ==
LOC: M LRY 11:12
PROVIDERS: ATTEND Physician Assistant Medical
DX: R19.7 Diarrhea, unspecified (principal)

== ENCOUNTER → 2024-07-19 | Outpatient (CLI) | payer BC ==
[~2024-07-19] MED LIST changes: +GABA-1172 PO; -GABA-282 PO
[2024-07-19 17:33] LABS: BASO # 0.1 10^3/uL (0.0-0.2); BASO % 1.1 % (0.0-1.0); EOS # 0.1 10^3/uL (0.0-0.5); EOS % 1.4 % (0.0-3.0); HEMATOCRIT 39.7 % (36.0-47.0); LYMPH # 2.4 10^3/uL (1.5-5.0); LYMPH % 36.7 % (24.0-44.0); MEAN CORPUSCULAR HEMOGLOBIN 30.2 pg (27.0-33.0); MEAN CORPUSCULAR HGB CONC 32.7 g/dl (32.0-36.5); MEAN CORPUSCULAR VOLUME 92.3 fl (80.0-96.0); MONO # 0.5 10^3/uL (0.0-0.8); MONO % 8.4 % (2.0-8.0); NEUTROPHILS # 3.3 10^3/uL (1.5-8.5); NEUTROPHILS % 52.1 % (36.0-66.0); PLATELET COUNT, AUTOMATED 295 10^3/uL (150-450); WHITE BLOOD COUNT 6.4 10^3/uL (4.0-10.0)
[2024-07-19 18:01] LABS: ALBUMIN 4.3 G/DL (3.2-5.2); ALKALINE PHOSPHATASE 53 U/L (35-104); ALT/SGPT 22 U/L (7.0-40); AST/SGOT 24 U/L (<34); BILIRUBIN,TOTAL 0.5 MG/DL (0.3-1.2); BLOOD UREA NITROGEN 18 MG/DL (9-23); CALCIUM LEVEL 10.2 MG/DL (8.3-10.6); CARBON DIOXIDE LEVEL 30 MMOL/L (20-31); CHLORIDE LEVEL 100 MMOL/L (98-107); CREATININE FOR GFR 0.61 MG/DL (0.55-1.30); GLOMERULAR FILTRATION RATE > 60.0 (>45); GLUCOSE, FASTING 83 MG/DL (74-106); SODIUM LEVEL 135 MMOL/L (136-145); TOTAL PROTEIN 8.1 G/DL (5.7-8.2)
[2024-07-19 18:03] LABS: FERRITIN 51.1 NG/ML (7.3-270.7)
== END ==
LOC: M PLALAB 16:26
PROVIDERS: ATTEND Family Medicine
DX: I10 Essential (primary) hypertension (principal); D50.9 Iron deficiency anemia, unspecified

== ENCOUNTER → 2024-08-09 | Outpatient (CLI) | payer BC ==
[2024-08-09 17:15] LABS: BASO # 0.1 10^3/uL (0.0-0.2); EOS # 0.1 10^3/uL (0.0-0.5); EOS % 0.7 % (0.0-3.0); HEMATOCRIT 40.2 % (36.0-47.0); HEMOGLOBIN 13.2 g/dl (12.0-15.5); LYMPH # 2.5 10^3/uL (1.5-5.0); LYMPH % 36.3 % (24.0-44.0); MEAN CORPUSCULAR HEMOGLOBIN 30.3 pg (27.0-33.0); MEAN CORPUSCULAR HGB CONC 32.8 g/dl (32.0-36.5); MEAN CORPUSCULAR VOLUME 92.4 fl (80.0-96.0); MONO # 0.5 10^3/uL (0.0-0.8); MONO % 7.8 % (2.0-8.0); NEUTROPHILS # 3.7 10^3/uL (1.5-8.5); NEUTROPHILS % 54.2 % (36.0-66.0); PLATELET COUNT, AUTOMATED 249 10^3/uL (150-450); RED BLOOD COUNT 4.35 10^6/uL (4.00-5.40); WHITE BLOOD COUNT 6.9 10^3/uL (4.0-10.0)
[2024-08-09 17:26] LABS: HEMOGLOBIN A1c 5.1 % (4.0-6.0)
[2024-08-09 17:29] LABS: INR 0.92; PARTIAL THROMBOPLASTIN TIME 28.8 SECONDS (24.8-34.2); PROTHROMBIN TIME 12.6 SECONDS (12.5-14.5)
[2024-08-09 17:48] LABS: ALBUMIN 4.4 G/DL (3.2-5.2); ALKALINE PHOSPHATASE 48 U/L (35-104); ALT/SGPT 22 U/L (7.0-40); AST/SGOT 25 U/L (<34); BILIRUBIN,TOTAL 0.5 MG/DL (0.3-1.2); BLOOD UREA NITROGEN 18 MG/DL (9-23); CALCIUM LEVEL 10.6 MG/DL (8.3-10.6); CARBON DIOXIDE LEVEL 32 MMOL/L (20-31); CHLORIDE LEVEL 94 MMOL/L (98-107); CREATININE FOR GFR 0.58 MG/DL (0.55-1.30); GLOMERULAR FILTRATION RATE > 60.0 (>45); GLUCOSE, FASTING 94 MG/DL (74-106); IRON (FE) 99 UG/DL (50-170); PERCENT SATURATION 30.9 % (13.2-45.0); POTASSIUM SERUM 3.8 MMOL/L (3.5-5.1); SODIUM LEVEL 132 MMOL/L (136-145); TOTAL IRON BINDING CAPACITY 320 UG/DL (250-425); TOTAL PROTEIN 8.1 G/DL (5.7-8.2)
[2024-08-09 17:50] LABS: FERRITIN 60.6 NG/ML (7.3-270.7); VITAMIN B12 LEVEL 503 PG/ML (211-911)
== END ==
LOC: M PLALAB 15:14
PROVIDERS: ATTEND Orthopaedic Surgery
DX: Z01.812 Encounter for preprocedural laboratory examination (principal); D64.9 Anemia, unspecified; Z13.1 Encounter for screening for diabetes mellitus

== ENCOUNTER → 2024-08-15 | Outpatient (CLI) | payer BC | LOC: M CARPUL 09:23 | PROVIDERS: ATTEND Family Medicine | DX: I35.8 Other nonrheumatic aortic valve disorders (principal) ==

== ENCOUNTER → 2025-04-21 | Outpatient (CLI) | payer BC ==
[2025-04-21 11:30] LABS: PLATELET COUNT, AUTOMATED 221 10^3/uL (150-450)
[2025-04-21 11:58] LABS: TOTAL 25(OH) VITAMIN D 80.4 NG/ML (20.0-100.0)
[2025-04-21 12:00] LABS: ALT/SGPT 20 U/L (7.0-40); AST/SGOT 25 U/L (<34); CALCIUM LEVEL 8.8 MG/DL (8.3-10.6); CARBON DIOXIDE LEVEL 32 MMOL/L (20-31); CHLORIDE LEVEL 101 MMOL/L (98-107); CHOLESTEROL LEVEL 275 MG/DL (<200); CHOLESTEROL RISK RATIO 3.32 (<5); CREATININE FOR GFR 0.71 MG/DL (0.55-1.30); GLOMERULAR FILTRATION RATE > 90.0 (>45); LDL CHOLESTEROL 181.4 MG/DL (<100); NON-HDL-C 192.2 MG/DL; POTASSIUM SERUM 4.4 MMOL/L (3.5-5.1); SODIUM LEVEL 140 MMOL/L (136-145); TRIGLYCERIDES LEVEL 54 MG/DL (<150)
[2025-04-21 12:01] LABS: ESTIMATED AVERAGE GLUCOSE 114.0 MG/DL (60-110)
== END ==
LOC: M PLALAB 08:51
PROVIDERS: ATTEND Family Medicine
DX: D50.9 Iron deficiency anemia, unspecified (principal); Z13.1 Encounter for screening for diabetes mellitus; I10 Essential (primary) hypertension; E78.00 Pure hypercholesterolemia, unspecified

== ENCOUNTER → 2025-06-23 | Outpatient (CLI) | payer BC ==
[~2025-06-23] MED LIST changes: -IBUP-1022 PO; +IBUP600T42 PO
== END ==
LOC: M RAD 13:15
PROVIDERS: ATTEND Family Medicine
DX: Z12.2 Encounter for screening for malignant neoplasm of respiratory organs (principal); F17.211 Nicotine dependence, cigarettes, in remission